=== PATIENT | male | born 1955 | race Caucasian/White ===

== ENCOUNTER 2016-02-19 07:21 | Outpatient (RCR) | payer BC ==
[2016-02-19 08:15] LABS: MEAN CORPUSCULAR HEMOGLOBIN 28.7 PG (26.0-34.0); MEAN CORPUSCULAR VOLUME 93 FL (80-100); MEAN PLATELET VOLUME 9.1 FL (6.0-9.5); PLATELET COUNT 315 10^3uL (150-450); WHITE BLOOD COUNT 8.78 10^3uL (4.0-11.0)
[2016-02-19 08:19] LABS: MEAN CORPUSCULAR HGB CONC 30.9 g/dL (31.0-37.0)
[2016-02-19 08:20] LABS: ANISOCYTOSIS SLIGHT; BAND NEUTROPHILS % 0 % (0-6); EOSINOPHILS % 1 % (0-4); HYPOCHROMASIA SLIGHT; LYMPHOCYTES # 0.4 #; MONOCYTES # 0.2 #; MONOCYTES % 2 % (3-11); RBC MORPH SEE REFERENCE (NORMAL); SEGMENTED NEUTROPHILS % 92 % (51-67); TOTAL CELLS COUNTED 100
[2016-02-28 08:55] LABS: MEAN CORPUSCULAR HEMOGLOBIN 28.7 PG (26.0-34.0); MEAN CORPUSCULAR VOLUME 92 FL (80-100); MEAN PLATELET VOLUME 10.1 FL (6.0-9.5); PLATELET COUNT 170 10^3uL (150-450); WHITE BLOOD COUNT 6.89 10^3uL (4.0-11.0)
[2016-02-28 09:00] LABS: MEAN CORPUSCULAR HGB CONC 31.1 g/dL (31.0-37.0)
[2016-02-28 09:34] LABS: ANISOCYTOSIS SLIGHT; BAND NEUTROPHILS % 6 % (0-6); EOSINOPHILS % 1 % (0-4); HYPOCHROMASIA SLIGHT; LYMPHOCYTES # 0.7 #; MICROCYTOSIS SLIGHT; MONOCYTES # 0.9 #; MONOCYTES % 15 % (3-11); RBC MORPH SEE REFERENCE (NORMAL); SEGMENTED NEUTROPHILS % 68 % (51-67); TOTAL CELLS COUNTED 100
[2016-03-05 08:25] LABS: MEAN CORPUSCULAR HEMOGLOBIN 27.6 PG (26.0-34.0); MEAN CORPUSCULAR VOLUME 91 FL (80-100); MEAN PLATELET VOLUME 9.4 FL (6.0-9.5); PLATELET COUNT 478 10^3uL (150-450); WHITE BLOOD COUNT 9.01 10^3uL (4.0-11.0)
[2016-03-05 08:26] LABS: MEAN CORPUSCULAR HGB CONC 30.3 g/dL (31.0-37.0)
[2016-03-05 08:31] LABS: ANISOCYTOSIS SLIGHT; BAND NEUTROPHILS % 0 % (0-6); EOSINOPHILS % 0 % (0-4); HYPOCHROMASIA SLIGHT; LYMPHOCYTES # 0.7 #; MONOCYTES # 0.9 #; MONOCYTES % 10 % (3-11); RBC MORPH SEE REFERENCE (NORMAL); SEGMENTED NEUTROPHILS % 82 % (51-67); TOTAL CELLS COUNTED 100
[2016-03-05 09:05] LABS: ALBUMIN 3.4 g/dL (3.4-5.0); ANION GAP 15.5 MEQ/L (3-15); MAGNESIUM* 1.9 mg/dL (1.6-2.3); PHOSPHORUS 3.9 mg/dL (2.4-4.9); TOTAL PROTEIN 7.2 g/dL (6.4-8.5)
[2016-03-19 10:29] LABS: MEAN CORPUSCULAR VOLUME 89 FL (80-100); MEAN PLATELET VOLUME 9.2 FL (6.0-9.5); PLATELET COUNT 194 10^3uL (150-450); WHITE BLOOD COUNT 3.63 10^3uL (4.0-11.0)
[2016-03-19 10:43] LABS: MEAN CORPUSCULAR HEMOGLOBIN 26.9 PG (26.0-34.0); MEAN CORPUSCULAR HGB CONC 30.2 g/dL (31.0-37.0)
[2016-03-19 10:45] LABS: BAND NEUTROPHILS % 1 % (0-6); EOSINOPHILS % 0 % (0-4); LYMPHOCYTES # 0.3 #; MONOCYTES # 0.3 #; MONOCYTES % 11 % (3-11); RBC MORPH NORMAL (NORMAL); SEGMENTED NEUTROPHILS % 81 % (51-67); TOTAL CELLS COUNTED 100
[2016-03-26 10:33] LABS: MEAN CORPUSCULAR HEMOGLOBIN 27.1 PG (26.0-34.0); MEAN CORPUSCULAR VOLUME 90 FL (80-100); MEAN PLATELET VOLUME 9.6 FL (6.0-9.5); PLATELET COUNT 483 10^3uL (150-450); WHITE BLOOD COUNT 7.99 10^3uL (4.0-11.0)
[2016-03-26 10:53] LABS: ANION GAP 14.8 MEQ/L (3-15); MAGNESIUM* 1.8 mg/dL (1.6-2.3); PHOSPHORUS 3.4 mg/dL (2.4-4.9); TOTAL PROTEIN 7.2 g/dL (6.4-8.5)
[2016-03-26 11:47] LABS: ANISOCYTOSIS SLIGHT; BAND NEUTROPHILS % 1 % (0-6); EOSINOPHILS % 2 % (0-4); HYPOCHROMASIA SLIGHT; LYMPHOCYTES # 0.3 #; MONOCYTES # 1.1 #; MONOCYTES % 16 % (3-11); RBC MORPH SEE REFERENCE (NORMAL); SEGMENTED NEUTROPHILS % 77 % (51-67); TOTAL CELLS COUNTED 100
[2016-04-02 10:57] LABS: MEAN CORPUSCULAR HEMOGLOBIN 27.4 PG (26.0-34.0); MEAN CORPUSCULAR VOLUME 91 FL (80-100); MEAN PLATELET VOLUME 9.1 FL (6.0-9.5); PLATELET COUNT 328 10^3uL (150-450)
[2016-04-02 11:05] LABS: BAND NEUTROPHILS % 0 % (0-6); EOSINOPHILS % 0 % (0-4); LYMPHOCYTES # 0.4 #; MONOCYTES # 0.2 #; MONOCYTES % 8 % (3-11); RBC MORPH SEE REFERENCE (NORMAL); SEGMENTED NEUTROPHILS % 80 % (51-67); TOTAL CELLS COUNTED 100
[2016-04-02 11:06] LABS: ANISOCYTOSIS SLIGHT; HYPOCHROMASIA SLIGHT
[2016-04-09 10:50] LABS: MEAN CORPUSCULAR HEMOGLOBIN 27.4 PG (26.0-34.0); MEAN CORPUSCULAR VOLUME 89 FL (80-100); MEAN PLATELET VOLUME 9.5 FL (6.0-9.5); PLATELET COUNT 168 10^3uL (150-450); WHITE BLOOD COUNT 3.28 10^3uL (4.0-11.0)
[2016-04-09 11:32] LABS: MEAN CORPUSCULAR HGB CONC 30.8 g/dL (31.0-37.0)
[2016-04-09 11:33] LABS: BAND NEUTROPHILS % 1 % (0-6); EOSINOPHILS % 2 % (0-4); LYMPHOCYTES # 0.3 #; MONOCYTES # 0.2 #; MONOCYTES % 8 % (3-11); SEGMENTED NEUTROPHILS % 79 % (51-67); TOTAL CELLS COUNTED 100
[2016-04-09 11:34] LABS: ANISOCYTOSIS SLIGHT; HYPOCHROMASIA SLIGHT; MICROCYTOSIS SLIGHT; RBC MORPH SEE REFERENCE (NORMAL)
[2016-04-09 18:12] LABS: IRON 20 ug/dL (65-175); UNBOUND IRON CONTENT 194 ug/dl (126-382)
[2016-04-15 10:26] LABS: MEAN CORPUSCULAR HEMOGLOBIN 27.2 PG (26.0-34.0); MEAN CORPUSCULAR VOLUME 89 FL (80-100); MEAN PLATELET VOLUME 9.6 FL (6.0-9.5); PLATELET COUNT 431 10^3uL (150-450); WHITE BLOOD COUNT 8.24 10^3uL (4.0-11.0)
[2016-04-15 10:28] LABS: MEAN CORPUSCULAR HGB CONC 30.8 g/dL (31.0-37.0)
[2016-04-15 10:40] LABS: ALBUMIN 3.8 g/dL (3.4-5.0); ANION GAP 11.8 MEQ/L (3-15); CALCULATED IONIZED CALCIUM 4.1 mg/dL (3.8-4.6); MAGNESIUM* 1.9 mg/dL (1.6-2.3); PHOSPHORUS 3.7 mg/dL (2.4-4.9); TOTAL PROTEIN 7.3 g/dL (6.4-8.5)
[2016-04-15 10:42] LABS: BAND NEUTROPHILS % 0 % (0-6); EOSINOPHILS % 0 % (0-4); LYMPHOCYTES # 0.6 #; MONOCYTES # 0.2 #; MONOCYTES % 3 % (3-11); RBC MORPH SEE REFERENCE (NORMAL); SEGMENTED NEUTROPHILS % 90 % (51-67); TOTAL CELLS COUNTED 100
[2016-04-15 10:43] LABS: ANISOCYTOSIS SLIGHT; HYPOCHROMASIA SLIGHT
[2016-04-23 11:02] LABS: MEAN CORPUSCULAR VOLUME 92 FL (80-100); MEAN PLATELET VOLUME 9.4 FL (6.0-9.5); PLATELET COUNT 345 10^3uL (150-450); WHITE BLOOD COUNT 3.49 10^3uL (4.0-11.0)
[2016-04-23 11:26] LABS: MEAN CORPUSCULAR HEMOGLOBIN 26.8 PG (26.0-34.0); MEAN CORPUSCULAR HGB CONC 29.1 g/dL (31.0-37.0)
[2016-04-23 11:58] LABS: ANISOCYTOSIS MODERATE; BAND NEUTROPHILS % 5 % (0-6); EOSINOPHILS % 0 % (0-4); HYPOCHROMASIA SLIGHT; LYMPHOCYTES # 0.2 #; MONOCYTES # 0.4 #; MONOCYTES % 12 % (3-11); RBC MORPH SEE REFERENCE (NORMAL); SEGMENTED NEUTROPHILS % 73 % (51-67); TOTAL CELLS COUNTED 100
[2016-04-30 10:28] LABS: MEAN CORPUSCULAR HEMOGLOBIN 27.5 PG (26.0-34.0); MEAN CORPUSCULAR VOLUME 92 FL (80-100); MEAN PLATELET VOLUME 9.1 FL (6.0-9.5); PLATELET COUNT 152 10^3uL (150-450); WHITE BLOOD COUNT 6.68 10^3uL (4.0-11.0)
[2016-04-30 10:36] LABS: BAND NEUTROPHILS % 0 % (0-6); EOSINOPHILS % 0 % (0-4); LYMPHOCYTES # 0.3 #; MONOCYTES # 0.4 #; MONOCYTES % 6 % (3-11); RBC MORPH SEE REFERENCE (NORMAL); SEGMENTED NEUTROPHILS % 89 % (51-67); TOTAL CELLS COUNTED 100
[2016-04-30 10:37] LABS: ANISOCYTOSIS SLIGHT
[2016-04-30 11:51] LABS: ALBUMIN 3.8 g/dL (3.4-5.0); CALCULATED IONIZED CALCIUM 4.3 mg/dL (3.8-4.6); MAGNESIUM* 1.9 mg/dL (1.6-2.3); PHOSPHORUS 3.5 mg/dL (2.4-4.9); TOTAL PROTEIN 6.5 g/dL (6.4-8.5)
[2016-05-07 12:01] LABS: BAND NEUTROPHILS % 4 % (0-6); EOSINOPHILS % 0 % (0-4); MONOCYTES % 10 % (3-11); RBC MORPH NORMAL (NORMAL); SEGMENTED NEUTROPHILS % 82 % (51-67); TOTAL CELLS COUNTED 100
== END 2016-05-19 | disposition home or self-care (01) ==
LOC: LAB 07:21
PROVIDERS: ATTEND Internal Medicine Hematology & Oncology
DX: C34.82 Malignant neoplasm of overlapping sites of left bronchus and lung (principal); C34.12 Malignant neoplasm of upper lobe, left bronchus or lung; C78.01 Secondary malignant neoplasm of right lung; C78.02 Secondary malignant neoplasm of left lung; Z87.891 Personal history of nicotine dependence
CPT/HCPCS: 36415; 80053; 82565; 82728; 83540; 83550; 83615; 83735; 84100; 85007; 85025; 85027

== ENCOUNTER 2016-05-14 10:02 | Outpatient (RCR) | payer BC ==
[~2016-05-14 10:02] MED LIST: AC325T PO; ACET325T38 PO; ALB0.5V INH; ALBU8.5H4 IH; ALBU8.5H6 IH; ALEN1TAB3 PO; ASCO500T20 PO; ASPI-860 PO; ASPI81TA42 PO; ATOR40TA59 PO; CEPH-331 PO; CHOL10002 PO; DOCU-34 PO; DOXY100C2 PO; EPIN0.3P2 IM; FLUT1DIS3 IH; FRSM20T PO; GFN600TCR PO; HC1C30 EXT; HYDR-3702 PO; IPRA3AMP11 INH; LEVO750T39 PO; LORA1TAB PO; METH4TAB27 PO; MGX400T PO; OMEG1CAP PO; OMEG1CAP14 PO; OMEP20TA PO; OXYGEN; PETR113O TP; PRD20T PO; ROPI0.25 PO; THERA M PO; TRAM-25 PO; [UNRECOGNIZED DRUG - OTHER] PO
[2016-05-14 10:14] LABS: BASOPHILS % (AUTO) 1 % (0-2); EOSINOPHILS # (AUTO) 0.1 10^3uL; EOSINOPHILS % (AUTO) 1 % (0-4); LYMPHOCYTES # (AUTO) 0.2 X10^3; MEAN CORPUSCULAR HEMOGLOBIN 28.4 PG (26.0-34.0); MEAN CORPUSCULAR VOLUME 94 FL (80-100); MEAN PLATELET VOLUME 9.2 FL (6.0-9.5); MONOCYTES # (AUTO) 0.4 X10^3; MONOCYTES % (AUTO) 9 % (3-11); NEUTROPHILS # (AUTO) 4.1 X10^3; NEUTROPHILS % (AUTO) 81 % (51-67); PLATELET COUNT 341 10^3uL (150-450); WHITE BLOOD COUNT 4.99 10^3uL (4.0-11.0)
[2016-05-14 10:15] LABS: MEAN CORPUSCULAR HGB CONC 30.3 g/dL (31.0-37.0)
[2016-05-21 09:56] LABS: MEAN CORPUSCULAR HEMOGLOBIN 28.4 PG (26.0-34.0); MEAN CORPUSCULAR VOLUME 91 FL (80-100); MEAN PLATELET VOLUME 9.5 FL (6.0-9.5); PLATELET COUNT 167 10^3uL (150-450)
[2016-05-21 10:07] LABS: MEAN CORPUSCULAR HGB CONC 31.1 g/dL (31.0-37.0)
[2016-05-21 10:08] LABS: BAND NEUTROPHILS % 0 % (0-6); EOSINOPHILS % 1 % (0-4); LYMPHOCYTES # 0.1 #; MONOCYTES # 0.4 #; MONOCYTES % 8 % (3-11); SEGMENTED NEUTROPHILS % 89 % (51-67); TOTAL CELLS COUNTED 100
[2016-05-21 10:09] LABS: ANISOCYTOSIS MODERATE; HYPOCHROMASIA MODERATE; RBC MORPH SEE REFERENCE (NORMAL)
[2016-05-28 10:45] LABS: MEAN CORPUSCULAR HEMOGLOBIN 28.4 PG (26.0-34.0); MEAN CORPUSCULAR VOLUME 94 FL (80-100); MEAN PLATELET VOLUME 9.6 FL (6.0-9.5); PLATELET COUNT 394 10^3uL (150-450); WHITE BLOOD COUNT 9.16 10^3uL (4.0-11.0)
[2016-05-28 10:46] LABS: MEAN CORPUSCULAR HGB CONC 30.2 g/dL (31.0-37.0)
[2016-05-28 10:55] LABS: BAND NEUTROPHILS % 1 % (0-6); EOSINOPHILS % 0 % (0-4); LYMPHOCYTES # 0.4 #; MONOCYTES # 0.5 #; MONOCYTES % 5 % (3-11); RBC MORPH SEE REFERENCE (NORMAL); SEGMENTED NEUTROPHILS % 90 % (51-67); TOTAL CELLS COUNTED 100
[2016-05-28 10:56] LABS: ANISOCYTOSIS SLIGHT
[2016-05-28 11:00] LABS: ALBUMIN 3.9 g/dL (3.4-5.0); ANION GAP 13.2 MEQ/L (3-15); CALCULATED IONIZED CALCIUM 4.1 mg/dL (3.8-4.6); MAGNESIUM* 1.7 mg/dL (1.6-2.3)
[2016-06-04 12:37] LABS: BASOPHILS % (AUTO) 0 % (0-2); EOSINOPHILS % (AUTO) 0 % (0-4); LYMPHOCYTES # (AUTO) 0.2 X10^3; MEAN CORPUSCULAR HEMOGLOBIN 28.7 PG (26.0-34.0); MEAN CORPUSCULAR HGB CONC 30.6 g/dL (31.0-37.0); MEAN CORPUSCULAR VOLUME 94 FL (80-100); MEAN PLATELET VOLUME 9.2 FL (6.0-9.5); MONOCYTES # (AUTO) 1.2 X10^3; MONOCYTES % (AUTO) 14 % (3-11); NEUTROPHILS # (AUTO) 7.1 X10^3; NEUTROPHILS % (AUTO) 82 % (51-67); PLATELET COUNT 475 10^3uL (150-450); WHITE BLOOD COUNT 8.63 10^3uL (4.0-11.0)
[2016-06-11 10:53] LABS: BASOPHILS % (AUTO) 0 % (0-2); EOSINOPHILS % (AUTO) 0 % (0-4); LYMPHOCYTES # (AUTO) 0.5 X10^3; MEAN CORPUSCULAR HEMOGLOBIN 28.8 PG (26.0-34.0); MEAN CORPUSCULAR VOLUME 95 FL (80-100); MEAN PLATELET VOLUME 9.5 FL (6.0-9.5); MONOCYTES # (AUTO) 1.7 X10^3; MONOCYTES % (AUTO) 14 % (3-11); NEUTROPHILS # (AUTO) 9.7 X10^3; NEUTROPHILS % (AUTO) 81 % (51-67); PLATELET COUNT 360 10^3uL (150-450); WHITE BLOOD COUNT 11.98 10^3uL (4.0-11.0)
[2016-06-11 10:54] LABS: MEAN CORPUSCULAR HGB CONC 30.4 g/dL (31.0-37.0)
[2016-06-18 12:35] LABS: MEAN CORPUSCULAR HEMOGLOBIN 27.8 PG (26.0-34.0); MEAN CORPUSCULAR VOLUME 91 FL (80-100); PLATELET COUNT 202 10^3uL (150-450); WHITE BLOOD COUNT 8.86 10^3uL (4.0-11.0)
[2016-06-18 12:38] LABS: MEAN CORPUSCULAR HGB CONC 30.7 g/dL (31.0-37.0)
[2016-06-18 12:59] LABS: BAND NEUTROPHILS % 8 % (0-6); EOSINOPHILS % 0 % (0-4); LYMPHOCYTES # 0.4 #; MONOCYTES # 0.2 #; MONOCYTES % 2 % (3-11); RBC MORPH NORMAL (NORMAL); SEGMENTED NEUTROPHILS % 85 % (51-67); TOTAL CELLS COUNTED 100
[2016-06-18 13:28] LABS: ALBUMIN 3.4 g/dL (3.4-5.0); ANION GAP 8.9 MEQ/L (3-15); CALCULATED IONIZED CALCIUM 4.4 mg/dL (3.8-4.6); MAGNESIUM* 1.8 mg/dL (1.6-2.3)
[2016-06-25 10:33] LABS: MEAN CORPUSCULAR HEMOGLOBIN 28.2 PG (26.0-34.0); MEAN CORPUSCULAR VOLUME 92 FL (80-100); MEAN PLATELET VOLUME 10.4 FL (6.0-9.5); PLATELET COUNT 278 10^3uL (150-450); WHITE BLOOD COUNT 3.12 10^3uL (4.0-11.0)
[2016-06-25 10:38] LABS: MEAN CORPUSCULAR HGB CONC 30.5 g/dL (31.0-37.0)
[2016-06-25 10:41] LABS: ANISOCYTOSIS SLIGHT; BAND NEUTROPHILS % 10 % (0-6); EOSINOPHILS % 1 % (0-4); HYPOCHROMASIA SLIGHT; MONOCYTES # 0.2 #; MONOCYTES % 6 % (3-11); RBC MORPH SEE REFERENCE (NORMAL); SEGMENTED NEUTROPHILS % 19 % (51-67); TOTAL CELLS COUNTED 100
[2016-07-01 10:57] LABS: MEAN CORPUSCULAR VOLUME 95 FL (80-100); MEAN PLATELET VOLUME 9.6 FL (6.0-9.5); PLATELET COUNT 273 10^3uL (150-450)
[2016-07-01 11:01] LABS: MEAN CORPUSCULAR HGB CONC 29.5 g/dL (31.0-37.0)
[2016-07-01 11:08] LABS: ANISOCYTOSIS SLIGHT; BAND NEUTROPHILS % 12 % (0-6); EOSINOPHILS % 0 % (0-4); HYPOCHROMASIA SLIGHT; LYMPHOCYTES # 0.9 #; MONOCYTES # 1.2 #; MONOCYTES % 7 % (3-11); RBC MORPH SEE REFERENCE (NORMAL); SEGMENTED NEUTROPHILS % 69 % (51-67); TOTAL CELLS COUNTED 100
[2016-07-08 14:10] LABS: MEAN CORPUSCULAR HEMOGLOBIN 27.8 PG (26.0-34.0); MEAN CORPUSCULAR HGB CONC 29.9 g/dL (31.0-37.0); MEAN CORPUSCULAR VOLUME 93 FL (80-100); MEAN PLATELET VOLUME 10.5 FL (6.0-9.5); PLATELET COUNT 126 10^3uL (150-450); WHITE BLOOD COUNT 18.04 10^3uL (4.0-11.0)
[2016-07-08 14:15] LABS: BAND NEUTROPHILS % 16 % (0-6); EOSINOPHILS % 0 % (0-4); LYMPHOCYTES # 1.1 #; MONOCYTES # 0.5 #; MONOCYTES % 3 % (3-11); SEGMENTED NEUTROPHILS % 67 % (51-67); TOTAL CELLS COUNTED 100
[2016-07-08 14:17] LABS: ANISOCYTOSIS SLIGHT; POIKILOCYTOSIS SLIGHT; RBC MORPH SEE REFERENCE (NORMAL)
[2016-07-08 14:22] LABS: ALBUMIN 3.6 g/dL (3.4-5.0); ANION GAP 13.5 MEQ/L (3-15); CALCULATED IONIZED CALCIUM 4.1 mg/dL (3.8-4.6); TOTAL PROTEIN 6.7 g/dL (6.4-8.5)
== END 2016-08-12 | disposition home or self-care (01) ==
LOC: LAB 10:02
PROVIDERS: ATTEND Internal Medicine Hematology & Oncology
DX: C34.82 Malignant neoplasm of overlapping sites of left bronchus and lung (principal); C34.12 Malignant neoplasm of upper lobe, left bronchus or lung; C78.01 Secondary malignant neoplasm of right lung; C78.02 Secondary malignant neoplasm of left lung; Z87.891 Personal history of nicotine dependence
CPT/HCPCS: 36415; 80053; 83615; 83735; 84100; 85007; 85025; 85027

== ENCOUNTER → 2016-05-22 | Outpatient (CLI) | payer BC | LOC: RAD 07:57 | PROVIDERS: ATTEND Internal Medicine Hematology & Oncology | DX: C34.82 Malignant neoplasm of overlapping sites of left bronchus and lung (principal); C34.12 Malignant neoplasm of upper lobe, left bronchus or lung; C78.01 Secondary malignant neoplasm of right lung; C78.02 Secondary malignant neoplasm of left lung; Z87.891 Personal history of nicotine dependence | CPT/HCPCS: 71260; 74178; Q9967 ==

== ENCOUNTER → 2016-07-10 | Outpatient (CLI) | payer BC ==
--- NOTE | 2016-07-10 11:20 | Diagnostic Imaging Report ---
PROCEDURE: CT chest pelvis with and abdomen with and without contrast. TECHNIQUE: Multiple contiguous axial images were obtained through the chest, abdomen and pelvis after uneventful bolus administration of intravenous contrast. Precontrast acquisitions were acquired through the abdomen. INDICATION: Lung cancer. Comparison is made study of 05/22/2016. FINDINGS: Large bilateral pulmonary mass lesions persist. There has been an increase in central liquefaction and gas formation within the dominant masses of the upper lobes, bilaterally. This suggests tumor necrosis. Spiculated solid component in the medial right upper lobe measures approximately 4.9 x 4.8 cm which has not significantly changed. Largest mass in the left upper lobe which does contain internal gas and fluid now measures 7.8 x 7.2 cm. This previously measured approximately 8.5 x 6.8 cm. Posterior pleural nodularity has increased in the right hemithorax. Lesser pleural thickening is also noted in the medial left hemithorax posteriorly at the level of aortic arch. There is a nodule involving the posterior medial right hemidiaphragm in the lower thorax which now measures 3.1 x 1.7 cm. Lymph node anterior to the diaphragm in the medial lower right hemithorax now measures 2.7 x 1.6 cm which has significantly increased when compared with previous measurement of 2.4 x 1.2 cm. 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 There has been minimal change within the bilateral upper lower masses which include areas of liquefaction and probable tumor necrosis. Superimposed infection is not excluded. Mass effect upon the mediastinum is again noted with apparent narrowing of right upper lobe pulmonary artery branches. CT abdomen and pelvis: There is no focal hepatic or splenic abnormality identified. No pancreatic or adrenal gland lesion is identified. There are occasional mildly prominent lymph nodes at the root of the mesentery measuring up to 1 cm in diameter. There is no evidence of adrenal gland or renal lesion. No free fluid is seen in the abdomen or pelvis. The partially opacified urinary bladder is unremarkable in appearance. IMPRESSION: No significant change in the CT appearance of the abdomen and pelvis. Lymph nodes measuring up to 1 cm in diameter again seen at the root of the mesentery. There is no other CT evidence of metastatic disease. Dictated by: Dictated on workstation # [id number]
== END ==
LOC: RAD 09:05
PROVIDERS: ATTEND Internal Medicine Hematology & Oncology
DX: C34.82 Malignant neoplasm of overlapping sites of left bronchus and lung (principal); C34.12 Malignant neoplasm of upper lobe, left bronchus or lung; C78.01 Secondary malignant neoplasm of right lung; C78.02 Secondary malignant neoplasm of left lung; Z87.891 Personal history of nicotine dependence
CPT/HCPCS: 71260; 74178; Q9967

== ENCOUNTER 2016-07-14 22:05 | Emergency (ER) | payer BC ==
[~2016-07-14] VITALS: Ht 167.6 cm; Wt 96.3 kg
[2016-07-14] MEDS ORDERED: FUROSEMIDE 40 MG/4 ML (LASIX) VIAL IV ONE (22:10)
[2016-07-14] MEDS ORDERED: FUROSEMIDE 20 MG/2 ML (LASIX) VIAL IV ONE (22:25)
[2016-07-14 22:38] LABS: MEAN CORPUSCULAR VOLUME 92 FL (80-100); MEAN PLATELET VOLUME 10.9 FL (6.0-9.5); PLATELET COUNT 241 10^3uL (150-450)
[2016-07-14 22:39] LABS: BILIRUBIN,URINE Negative (Negative); CLARITY,URINE Clear; GLUCOSE, URINE (UA) Negative (Negative); LEUKOCYTE ESTERASE ,URINE Negative (Negative); UROBILINOGEN,URINE 0.2 mg/dL (0.2-1.0)
[2016-07-14 22:42] LABS: ALBUMIN 3.6 g/dL (3.4-5.0); ALKALINE PHOSPHATASE 164 U/L (38-126); ANION GAP 15.3 MEQ/L (3-15); BUN/CREATININE RATIO 28 (10-20); CALCULATED IONIZED CALCIUM 4.5 mg/dL (3.8-4.6); MAGNESIUM* 1.6 mg/dL (1.6-2.3); TOTAL PROTEIN 6.5 g/dL (6.4-8.5)
[2016-07-14] MEDS ORDERED: ALBUTEROL/IPRATROPIUM 3MG-0.5MG/3ML (DUONEB) NEB VIAL INH ONE (22:45)
[2016-07-14 23:05] LABS: COLOR,URINE Dark Yellow
[2016-07-14 23:07] LABS: URINE CENTRIFUGED VOLUME 12 mL
[2016-07-14 23:25] LABS: MEAN CORPUSCULAR HGB CONC 30.7 g/dL (31.0-37.0); WHITE BLOOD COUNT 30.72 10^3uL (4.0-11.0)
--- NOTE | 2016-07-14 23:27 | NUR ---
received notification from gloria in lab that patient wbc is 30.72. results immediately reported to Dr. Colón at this time. No new orders received.
[2016-07-14 23:49] LABS: BAND NEUTROPHILS % 1 % (0-6); EOSINOPHILS % 0 % (0-4); LYMPHOCYTES # 0.6 #; MONOCYTES # 0.6 #; MONOCYTES % 2 % (3-11); SEGMENTED NEUTROPHILS % 93 % (51-67)
[2016-07-14 23:50] LABS: ANISOCYTOSIS MARKED; HYPOCHROMASIA SLIGHT; POIKILOCYTOSIS MODERATE; RBC MORPH SEE REFERENCE (NORMAL); TOTAL CELLS COUNTED 100
--- NOTE | 2016-07-15 00:40 | NUR ---
Report called to Autumn Moore RN @ [facility]
[2016-07-15 00:59] VITALS: BP 140/97
--- NOTE | 2016-07-15 08:03 | Diagnostic Imaging Report ---
INDICATION: Cough, hypoxia, shortness of air. FINDINGS: Abnormal bilateral perihilar parenchymal opacities stable on the right and improved on the left. Fiducial markers or postsurgical clips unchanged. Underlying COPD chronic. No pneumothorax. IMPRESSION: Bilateral perihilar parenchymal opacities unchanged on the right and slightly decreased on the left. Dictated by: Dictated on workstation # [id number]
== END 2016-07-15 01:05 | disposition short-term general hospital (02) ==
LOC: ED 22:06
DX: R06.00 Dyspnea, unspecified (principal); C34.90 Malignant neoplasm of unspecified part of unspecified bronchus or lung; I50.9 Heart failure, unspecified; Z87.891 Personal history of nicotine dependence
CPT/HCPCS: 36415; 51702; 71010; 80053; 81003; 81015; 83735; 83880; 84132; 84484; 85025; 93005; 94640; 96374; 99285; J1940; 93010; 99284

== ENCOUNTER → 2016-07-14 | Outpatient (CLI) | payer BC | LOC: EMS 21:50 | PROVIDERS: ATTEND Family Medicine | DX: R06.02 Shortness of breath (principal) ==

== ENCOUNTER → 2016-07-15 | Outpatient (CLI) | payer BC | LOC: EMS 00:45 | PROVIDERS: ATTEND Internal Medicine | DX: J96.90 Respiratory failure, unspecified, unspecified whether with hypoxia or hypercapnia (principal); C34.90 Malignant neoplasm of unspecified part of unspecified bronchus or lung ==